=== PATIENT | male | born 1975 | race Caucasian/White ===

== ENCOUNTER 2016-08-30 18:24 | Emergency (ER) | payer MEDICAID | END 2016-08-30 20:18 | disposition left against medical advice (07) | LOC: UCCORT 18:24 | DX: R51 Headache (principal); Z53.9 Procedure and treatment not carried out, unspecified reason ==

== ENCOUNTER 2016-11-20 19:28 | Emergency (ER) | payer MEDICAID ==
[2016-11-20 19:56] VITALS: BP 111/66
--- NOTE | 2016-11-20 20:12 | UC ---
Ear Complaint HPI - HPI Summary HPI Summary: ear pain , cough and sore throat for the past few days, denies fever. - History of Current Complaint Chief Complaint: UCGeneralIllness Stated Complaint: COUGH,SORE THROAT,SINUS Time Seen by Provider: 11/20/16 20:00 Hx Obtained From: Patient Onset/Duration: Sudden Onset, Lasting Days Severity Initially: Moderate Severity Currently: Severe Associated Signs/Symptoms: Positive: Swelling @, URI Symptoms - Allergies/Home Medications Allergies/Adverse Reactions: Allergies Allergy/AdvReac Type Severity Reaction Status Date / Time No Known Allergies Allergy Verified 11/20/16 19:50 PMH/Surg Hx/FS Hx/Imm Hx Previously Healthy: Yes Respiratory History Of: Reports: Asthma - exercise-induced GI/ History Of: Reports: Kidney Stones Psychological History Of: Reports: Anxiety, Depression - Surgical History Surgical History: Yes Surgery Procedure, Year, and Place: HERNIATED DISC REPAIR, TONSILECTOMY - Family History Known Family History: Positive: Hypertension - Social History Alcohol Use: None Alcohol Amount: 250-300mL Substance Use Type: None Substance Use Comment - Amount & Last Used: occasionally Smoking Status (MU): Light Every Day Tobacco Smoker Type: Cigarettes Amount Used/How Often: 6-8 CIGS/DAY Length of Time of Smoking/Using Tobacco: 10 + yrs Household Exposure Type: Cigarettes - Immunization History Most Recent Influenza Vaccination: none Most Recent Tetanus Shot: UTD Most Recent Pneumonia Vaccination: N/A Review of Systems Constitutional: Fatigue Skin: Negative Eyes: Negative ENT: Sore Throat, Ear Ache, Nasal Discharge Respiratory: Shortness Of Breath, Cough Cardiovascular: Negative Gastrointestinal: Negative Genitourinary: Negative Motor: Negative Neurovascular: Negative Musculoskeletal: Negative Neurological: Negative Psychological: Negative All Other Systems Reviewed And Are Negative: Yes Physical Exam Triage Information Reviewed: Yes Appearance: Well-Nourished, Ill-Appearing, Pain Distress Vital Signs: Initial Vital Signs Temp 97.3 F 11/20/16 19:50 Pulse 78 11/20/16 19:50 Resp 18 11/20/16 19:50 BP 111/66 11/20/16 19:50 Pulse Ox 96 11/20/16 19:50 Vital Signs Reviewed: Yes Eye Exam: Normal Eyes: Positive: Conjunctiva Clear ENT Exam: Normal ENT: Positive: Hearing grossly normal, Pharyngeal erythema, Nasal congestion, TMs normal, TM bulging - left ear red purulent fluid behind TM Dental Exam: Normal Neck exam: Normal Neck: Positive: Supple, Nontender, No Lymphadenopathy Respiratory: Positive: Chest non-tender, No respiratory distress, Wheezing, Inspiration, Other: - cough present Cardiovascular Exam: Normal Cardiovascular: Positive: RRR, No Murmur, Pulses Normal Abdominal Exam: Normal Abdomen Description: Positive: Nontender, No Organomegaly, Soft Bowel Sounds: Positive: Present Musculoskeletal Exam: Normal Musculoskeletal: Positive: Strength Intact, ROM Intact, No Edema Neurological Exam: Normal Neurological: Positive: Alert, Muscle Tone Normal Psychological Exam: Normal Skin Exam: Normal Ear Complaint Course/Dx - Course Course Of Treatment: hx obtained, exam performed,meds reviewed, treated for left otitis media, and wheezing - Differential Dx/Diagnosis Differential Diagnosis/HQI/PQRI: Otitis Media, Pharyngitis, Trauma Provider Diagnoses: left otitis media. pharyngitis. wheezing Discharge - Discharge Plan Condition: Stable Disposition: HOME Patient Education Materials: Otitis Media (ED) Additional Instructions: take the medication as prescribed. Increase your fluid intake and get plenty of rest.
== END 2016-11-20 20:27 | disposition home or self-care (01) ==
LOC: UCCORT 19:28
DX: H66.92 Otitis media, unspecified, left ear (principal); J02.9 Acute pharyngitis, unspecified; R06.2 Wheezing; Z87.442 Personal history of urinary calculi; F41.9 Anxiety disorder, unspecified; F32.9 Major depressive disorder, single episode, unspecified; F17.210 Nicotine dependence, cigarettes, uncomplicated
CPT/HCPCS: 99212; G0463

== ENCOUNTER 2017-03-03 12:34 | Emergency (ER) | payer SELFPAY ==
[2017-03-03 13:26] VITALS: BP 123/57
[2017-03-03] MEDS ORDERED: Ibuprofen TAB* 600 MG PO ONE (14:49)
[2017-03-03] MEDS ORDERED: Lidocaine 1%* 5 ML VIAL INJ ONE (14:50)
[2017-03-03] MEDS ORDERED: Tetan/Diph/Pertus SYR(Tdap)* 0.5 ML SYR(BOOSTRIX) use SYR IM ONE (14:50)
[2017-03-03] MEDS ORDERED: Lidocaine 1% MPF* 2 ML VIAL ONE (14:59)
--- NOTE | 2017-03-03 15:20 | UC ---
Sundeep Can Benjamin, scribed for Мария Pedraza MD on 03/03/17 at 1452 . Hand/Wrist HPI - HPI Summary HPI Summary: 41yo male c/o left thumb nailbed pain, swelling, and bruising. Pt had a papercut in between his left thumb nail and the nailbed from a corner of the box top at his work a few days ago ( approx 5) Pt states there was only mild pain immediately after work but his pain has been getting worse with time. Area also started to bruise up and swell. Pain is worsen with touch and movement. Pt is left handed. no immunocompromised. Unknown last tdao Pt smoke cigarettes but denies any other drug use or alcohol use. Reviewed pt s medication and allergy lists. - History Of Current Complaint Chief Complaint: UCWounds Stated Complaint: SOFT TISSUE Time Seen by Provider: 03/03/17 14:40 Hx Obtained From: Patient ?: No Onset/Duration: Sudden Onset, Lasting Days Severity Initially: Mild Severity Currently: Moderate Character Of Pain: Sharp, Throbbing Aggravating Factor(s): Movement Alleviating: Nothing Associated Signs And Symptoms: Positive: Swelling, Bruising - Allergies/Home Medications Allergies/Adverse Reactions: Allergies Allergy/AdvReac Type Severity Reaction Status Date / Time No Known Allergies Allergy Verified 03/03/17 13:26 Home Medications: Home Medications Ibuprofen TAB* [Advil TAB*] 600 mg PO PRN 03/03/17 [History] PMH/Surg Hx/FS Hx/Imm Hx Previously Healthy: Yes GI/ History: Kidney Stones - Surgical History Surgical History: Yes Surgery Procedure, Year, and Place: HERNIATED DISC REPAIR, TONSILECTOMY - Family History Known Family History: Positive: Hypertension - Social History Occupation: Employed Full-time Lives: Alone Alcohol Use: None Alcohol Amount: 250-300mL Substance Use Type: None Substance Use Comment - Amount & Last Used: occasionally Smoking Status (MU): Light Every Day Tobacco Smoker Type: Cigarettes Amount Used/How Often: 6-8 CIGS/DAY Length of Time of Smoking/Using Tobacco: 10 + yrs Household Exposure Type: Cigarettes - Immunization History Most Recent Influenza Vaccination: none Most Recent Tetanus Shot: UTD Most Recent Pneumonia Vaccination: N/A Review of Systems Constitutional: Negative Skin: Bruising - left thumb, Other - erythema, pain, edema Eyes: Negative ENT: Negative Respiratory: Negative Cardiovascular: Negative Gastrointestinal: Negative Genitourinary: Negative Motor: Negative Neurovascular: Negative Musculoskeletal: Edema - left thumb, Other: - left thumb nailbed pain Neurological: Negative Psychological: Negative All Other Systems Reviewed And Are Negative: Yes Physical Exam Triage Information Reviewed: Yes Appearance: Well-Appearing, Pain Distress - with exam Vital Signs: Initial Vital Signs Temp 99.0 F 03/03/17 13:23 Pulse 66 03/03/17 13:23 Resp 18 03/03/17 13:23 BP 123/57 03/03/17 13:23 Pulse Ox 98 03/03/17 13:23 Vital Signs Reviewed: Yes Eye Exam: Normal Eyes: Negative: Discharge ENT Exam: Normal Dental Exam: Normal Neck exam: Normal Neck: Positive: Supple, Nontender, No Lymphadenopathy Respiratory Exam: Normal Respiratory: Positive: Normal breath sounds, No respiratory distress, No accessory muscle use Cardiovascular: Positive: Other: - CBT <2 sec digit Musculoskeletal: Positive: Other: - + thumb up + flex/ext IP, MCP Neurological Exam: Normal Psychological Exam: Normal Skin: Positive: Other - the thumb paronychia medial aspect from mid medial nail extending to proximal bed + erythema, + fluctuance, + visible purluent material No pad involvement, not circumferential Procedures - Procedure Summary Procedure Summary: + consent and time out under sterile condition, infiltrated 0.5ml 1% lidocaine in to area using 11 blade scaple, lifted cuticle 2ml purluent discharge from wound culture obtained copious sterile water irrigation covered with abx oinmtment, bandage and splint - Incision and Drainage Site: left thumb Anesthesia: Lidocaine - 1%, no epi, 0.5ml Instrument(s): Scalpel Packing: Drain Hand/Wrist Course/Dx - Course Course Of Treatment: started with papercut under nail at work - progressed to thumb paronychia. I+D. tdap updated. motrin. culture. augmentin. soaks. wound care. Pt comfortable and in agreement with plan - Differential Dx/Diagnosis Provider Diagnoses: paronychia Discharge - Discharge Plan Condition: Stable Disposition: HOME Prescriptions: Amoxicillin/Clavulanate TAB* [Augmentin TAB 875*] 875 mg PO BID #14 tab Patient Education Materials: Paronychia (ED) Referrals: VICKI Herr [Primary Care Provider] - Additional Instructions: - Soak finger in warm water, 20 minutes at a time, 2-3 times a day - apply a layer of antibiotic ointment and a bandage - Okay to alternate ibuprofen (Advil, motrin) and tylenol every 3hours for pain - Take antibiotics as prescribed until gone - your arm will likely be sore from your tetanus shot. This is normal for 1-2 days - Wear splint for comfort or support - Contact your doctor or return with questions or concerns The documentation as recorded by the Sundeep jesus Benjamin accurately reflects the service I personally performed and the decisions made by , Мария Pedraza MD.
== END 2017-03-03 15:15 | disposition home or self-care (01) ==
LOC: UCEAST 12:34
DX: L03.012 Cellulitis of left finger (principal); F17.210 Nicotine dependence, cigarettes, uncomplicated
CPT/HCPCS: 10140; 87070; 87077; 87186; 87205; 87640; 87641; 90471; 90715; 99212; A9270-GY; G0463

== ENCOUNTER 2017-10-19 11:20 | Emergency (ER) | payer SELFPAY ==
[2017-10-19 12:14] VITALS: BP 107/77
--- NOTE | 2017-10-19 12:23 | UC ---
Lower Extremity/Ankle HPI - HPI Summary HPI Summary: Pt presents with left 4th toe pain. He tells me that in the middle of the night he got up to get a drink of water and stubbed his toe on the table. Woke up this morning with swelling and bruise. Concerned that it is broken. Has not been icing the area and has not taken anything OTC - History of Current Complaint Chief Complaint: UCLowerExtremity Stated Complaint: LEFT TOE INJURY Time Seen by Provider: 10/19/17 12:23 Hx Obtained From: Patient Onset/Duration: Sudden Onset Severity Initially: Severe Severity Currently: Severe Pain Intensity: 8 Pain Scale Used: 0-10 Numeric - Allergies/Home Medications Allergies/Adverse Reactions: Allergies Allergy/AdvReac Type Severity Reaction Status Date / Time No Known Allergies Allergy Verified 10/19/17 12:10 Home Medications: Home Medications NK [No Home Medications Reported] 10/19/17 [History Confirmed 10/19/17] PMH/Surg Hx/FS Hx/Imm Hx Previously Healthy: Yes - Surgical History Surgical History: Yes Surgery Procedure, Year, and Place: HERNIATED DISC REPAIR, TONSILECTOMY - Family History Known Family History: Positive: Hypertension - Social History Lives: With Family Alcohol Use: None Alcohol Amount: 250-300mL Substance Use Type: Marijuana Substance Use Comment - Amount & Last Used: occasionally Smoking Status (MU): Light Every Day Tobacco Smoker Type: Cigarettes Amount Used/How Often: <1/2ppd Length of Time of Smoking/Using Tobacco: 10 + yrs Household Exposure Type: Cigarettes - Immunization History Most Recent Influenza Vaccination: none Most Recent Tetanus Shot: UTD Most Recent Pneumonia Vaccination: N/A Review of Systems Constitutional: Negative Skin: Negative Respiratory: Negative Cardiovascular: Negative Neurovascular: Negative Musculoskeletal: Other: - Left 4th toe pain Neurological: Negative Psychological: Negative All Other Systems Reviewed And Are Negative: Yes Physical Exam - Summary Physical Exam Summary: GENERAL: NAD. WDWN. No pain distress. SKIN: No rashes, sores, ulcers, masses, lesions. NECK: Supple. Nontender. No lymphadenopathy. CHEST: CTAB. No r/r/w. No accessory muscle use. Breathing comfortably and in no distress. CV: RRR. Without m/r/g. Pulses intact PT and DP. Brisk cap refill. MSK: Severe TTP over PIP of 4th toe. Overlying ecchymosis and mild edema. No obvious bony deformities. No MT pain. NEURO: Alert. Sensations intact foot and all toes. PSYCH: Age appropriate behavior. Triage Information Reviewed: Yes Vital Signs: Initial Vital Signs Temp 98.4 F 10/19/17 12:11 Pulse 85 10/19/17 12:11 Resp 16 10/19/17 12:11 BP 107/77 10/19/17 12:11 Pulse Ox 99 10/19/17 12:11 Lower Extremity Course/Dx - Course Course Of Treatment: XR: REPORT AND IMPRESSION: Negative for fracture or malalignment. Distal soft tissue swelling. Suspect toe contusion. Advised to rest and ice the area. Take ibuprofen as needed for pain. - Differential Dx/Diagnosis Provider Diagnoses: 4th Toe contusion Discharge - Sign-Out/Discharge Documenting (check all that apply): Discharge - Discharge Plan Condition: Stable Disposition: HOME Patient Education Materials: Foot Contusion (ED) Referrals: VICKI Herr [Primary Care Provider] - Additional Instructions: If you develop a fever, shortness of breath, chest pain, new or worsening symptoms - please call your PCP or go to the ED. 1) Rest, Ice, and elevate your foot as much as possible over the next 24-48hrs 2) May take ibuprofen 600mg every 6-8 hours as needed for pain - Billing Disposition and Condition Condition: STABLE Disposition: HOME
--- NOTE | 2017-10-19 12:47 | RAD ---
Indication: LEFT fourth toe pain and bruising following stubbing injury. Comparison: No relevant prior exams available on the [facility] for comparison. Technique: 3 views LEFT fourth toe REPORT AND IMPRESSION: Negative for fracture or malalignment. Distal soft tissue swelling.
== END 2017-10-19 13:01 | disposition home or self-care (01) ==
LOC: UCCORT 11:20
DX: S90.122A Contusion of left lesser toe(s) without damage to nail, initial encounter (principal); W22.8XXA Striking against or struck by other objects, initial encounter; Y92.9 Unspecified place or not applicable; F17.210 Nicotine dependence, cigarettes, uncomplicated
CPT/HCPCS: 99211; G0463

== ENCOUNTER 2018-07-15 16:03 | Emergency (ER) | payer OTHER ==
[2018-07-15 16:32] VITALS: BP 123/75
--- NOTE | 2018-07-15 16:49 | UC ---
Throat Pain/Nasal Dylan HPI - HPI Summary HPI Summary: 43-year-old male comes in here today with a chief complaint of sore throat runny nose upper respiratory tract infection symptoms that's been going on for several days. No wheezing some body aches. Swallowing makes the pain worse not swallowing minimize the pain. - History of Current Complaint Chief Complaint: UCGeneralIllness Stated Complaint: ST,CONGESTION Time Seen by Provider: 07/15/18 16:22 Pain Intensity: 0 - Allergies/Home Medications Allergies/Adverse Reactions: Allergies Allergy/AdvReac Type Severity Reaction Status Date / Time No Known Allergies Allergy Verified 07/15/18 16:32 PMH/Surg Hx/FS Hx/Imm Hx Previously Healthy: Yes - Surgical History Surgical History: Yes Surgery Procedure, Year, and Place: HERNIATED DISC REPAIR, TONSILECTOMY - Family History Known Family History: Positive: Hypertension - Social History Alcohol Use: None Alcohol Amount: 250-300mL Substance Use Type: Marijuana Substance Use Comment - Amount & Last Used: occasionally/son in room today Smoking Status (MU): Light Every Day Tobacco Smoker Type: Cigarettes Amount Used/How Often: <1/2ppd Length of Time of Smoking/Using Tobacco: 10 + yrs Household Exposure Type: Cigarettes - Immunization History Most Recent Influenza Vaccination: none Most Recent Tetanus Shot: UTD Most Recent Pneumonia Vaccination: N/A Review of Systems All Other Systems Reviewed And Are Negative: Yes Constitutional: Positive: Negative Skin: Positive: Negative Eyes: Positive: Negative ENT: Positive: Sore Throat, Nasal Discharge, Sinus Congestion Respiratory: Positive: Negative Cardiovascular: Positive: Negative Gastrointestinal: Positive: Negative Motor: Positive: Negative Neurovascular: Positive: Negative Musculoskeletal: Positive: Negative Neurological: Positive: Negative Psychological: Positive: Negative Is Patient Immunocompromised?: No Physical Exam Triage Information Reviewed: Yes Appearance: No Pain Distress, Well-Nourished, Ill-Appearing - MILD Vital Signs: Initial Vital Signs Temp 98.3 F 07/15/18 16:28 Pulse 68 07/15/18 16:28 Resp 16 07/15/18 16:28 BP 123/75 07/15/18 16:28 Pulse Ox 99 07/15/18 16:28 Eye Exam: Normal Eyes: Positive: Conjunctiva Clear ENT: Positive: Pharyngeal erythema, Nasal congestion, Nasal drainage Neck exam: Normal Neck: Positive: Supple Respiratory: Positive: Lungs clear, Normal breath sounds, No respiratory distress Cardiovascular: Positive: RRR Musculoskeletal Exam: Normal Musculoskeletal: Positive: Strength Intact, ROM Intact Neurological Exam: Normal Neurological: Positive: Alert, Muscle Tone Normal Psychological Exam: Normal Psychological: Positive: Age Appropriate Behavior Skin Exam: Normal Throat Pain/Nasal Course/Dx - Course Course Of Treatment: Strep was negative. This was discussed with the patient. Also viral versus bacterial infections and these of antibiotics was discussed. At this time there preference is to have the antibiotic to be taken if symptoms continue. - Differential Dx/Diagnosis Provider Diagnosis: Pharyngitis Discharge - Sign-Out/Discharge Documenting (check all that apply): Patient Departure All imaging exams completed and their final reports reviewed: No Studies - Discharge Plan Condition: Stable Disposition: HOME Prescriptions: Amoxicillin PO (*) [Amoxicillin 875 MG (*)] 875 mg PO BID #20 tab Patient Education Materials: Pharyngitis (ED) Forms: *Work Release Referrals: [facility] [Outside] Additional Instructions: FOLLOW UP WITH YOUR DOCTOR IF NOT COMPLETELY IMPROVED. GET RECHECKED FOR ANY WORSENING OF YOUR CONDITION OR QUESTIONS OR CONCERNS. - Billing Disposition and Condition Condition: STABLE Disposition: Home
== END 2018-07-15 17:14 | disposition home or self-care (01) ==
LOC: UCCORT 16:03
DX: J02.9 Acute pharyngitis, unspecified (principal); F17.210 Nicotine dependence, cigarettes, uncomplicated
CPT/HCPCS: 87651; 99212; G0463

== ENCOUNTER 2018-08-14 10:45 | Emergency (ER) | payer OTHER ==
[2018-08-14 11:07] VITALS: BP 129/70
--- NOTE | 2018-08-14 11:33 | UC ---
Throat Pain/Nasal Dylan HPI - HPI Summary HPI Summary: Pt c/o sudden onset ST, that began last night. Pt states that his son was diagnosed with strep " a few days ago" and had left over amoxicillin and took a tab last night and then this morning. Pt denies improvement in ST. - History of Current Complaint Chief Complaint: UCGeneralIllness Stated Complaint: SORE THROAT Time Seen by Provider: 08/14/18 11:14 Hx Obtained From: Patient Onset/Duration: Sudden Onset, Lasting Days, Still Present Severity: Mild Pain Intensity: 4 Associated Signs & Symptoms: Positive: Dysphagia Related History: Smoking - Epiglottits Risk Factors Epiglottis Risk Factors: Sudden Onset - Allergies/Home Medications Allergies/Adverse Reactions: Allergies Allergy/AdvReac Type Severity Reaction Status Date / Time No Known Allergies Allergy Verified 08/14/18 11:07 PMH/Surg Hx/FS Hx/Imm Hx Previously Healthy: Yes - Surgical History Surgical History: Yes Surgery Procedure, Year, and Place: HERNIATED DISC REPAIR, TONSILECTOMY - Family History Known Family History: Positive: Hypertension - Social History Occupation: Employed Full-time Lives: With Family Alcohol Use: None Alcohol Amount: 250-300mL Substance Use Type: Marijuana Substance Use Comment - Amount & Last Used: occasionally/son in room today Smoking Status (MU): Light Every Day Tobacco Smoker Type: Cigarettes Amount Used/How Often: <1/2ppd Length of Time of Smoking/Using Tobacco: 10 + yrs Have You Smoked in the Last Year: Yes Household Exposure Type: Cigarettes - Immunization History Most Recent Influenza Vaccination: none Most Recent Tetanus Shot: UTD Most Recent Pneumonia Vaccination: N/A Review of Systems All Other Systems Reviewed And Are Negative: Yes Constitutional: Positive: Fatigue Skin: Positive: Negative Eyes: Positive: Negative ENT: Positive: Sore Throat Respiratory: Positive: Negative Cardiovascular: Positive: Negative Gastrointestinal: Positive: Negative Genitourinary: Positive: Negative Motor: Positive: Negative Neurovascular: Positive: Negative Musculoskeletal: Positive: Negative Neurological: Positive: Negative Psychological: Positive: Negative Is Patient Immunocompromised?: No Physical Exam Triage Information Reviewed: Yes Appearance: Well-Appearing Vital Signs: Initial Vital Signs Temp 98.3 F 08/14/18 11:04 Pulse 79 08/14/18 11:04 Resp 18 08/14/18 11:04 BP 129/70 08/14/18 11:04 Pulse Ox 99 08/14/18 11:04 Vital Signs Reviewed: Yes Eye Exam: Normal ENT Exam: Other ENT: Positive: Tonsillar swelling Dental Exam: Normal Neck exam: Normal Respiratory Exam: Normal Cardiovascular Exam: Normal Musculoskeletal Exam: Normal Neurological Exam: Normal Psychological Exam: Normal Skin Exam: Normal Diagnostics - Laboratory Diagnostic Studies Completed/Ordered: throat culture sent Throat Pain/Nasal Course/Dx - Differential Dx/Diagnosis Differential Diagnosis/HQI/PQRI: Influenza, Pharyngitis, Tonsillitis, URI Provider Diagnosis: Sore throat Discharge - Sign-Out/Discharge Documenting (check all that apply): Patient Departure All imaging exams completed and their final reports reviewed: No Studies - Discharge Plan Condition: Stable Disposition: HOME Prescriptions: predniSONE TAB* [Deltasone 20 MG TAB*] 20 mg PO DAILY #4 tab Patient Education Materials: Pharyngitis (ED) Forms: *Work Release Referrals: [facility] [Outside] No Primary Care Phys,NOPCP [Primary Care Provider] - - Billing Disposition and Condition Condition: STABLE Disposition: Home - Attestation Statements Provider Attestation: I was available for consult. This patient was seen by the KEIRA. The patient was not presented to, seen by, or examined by me. -Oscar
== END 2018-08-14 11:40 | disposition home or self-care (01) ==
LOC: UCCORT 10:45
DX: J02.9 Acute pharyngitis, unspecified (principal); F17.210 Nicotine dependence, cigarettes, uncomplicated
CPT/HCPCS: 87070; 99212; G0463

== ENCOUNTER 2018-08-28 08:45 | Emergency (ER) | payer OTHER | END 2018-08-28 08:58 | disposition left against medical advice (07) | LOC: UCCORT 08:45 | DX: Z53.21 Procedure and treatment not carried out due to patient leaving prior to being seen by health care provider (principal) ==

== ENCOUNTER 2019-02-09 07:18 | Emergency (ER) | payer OTHER ==
[2019-02-09] MEDS ORDERED: Al Hydrox/Mg Hydrox/Simet LIQ* 30 ML UDC PO ONE (07:55)
[2019-02-09] MEDS ORDERED: Lidocaine 2% VISCOUS* 15 ML UDC PO ONE (07:55)
--- NOTE | 2019-02-09 08:03 | UC ---
Abdominal Pain Male HPI - HPI Summary HPI Summary: SEVERAL DAYS OF EPIGASTRIC/LEFT UPPER QUADRANT SHARP ABDOMINAL PAIN. FEELS SOME ACID IN HIS THROAT. APPETITE HAS BEEN DECREASED. MILD NAUSEA BUT NO VOMITING. NO DIARRHEA. NO FEVER. REPORTS ABOUT 20 LB UNINTENTIONAL WEIGHT LOSS OVER THE PAST 6 MONTHS BUT THINKS THIS IS DUE TO STRESS AND ANXIETY. - History of Current Complaint Chief Complaint: UCAbdominalPain Stated Complaint: STOMACH PAIN Time Seen by Provider: 02/09/19 07:33 Hx Obtained From: Patient Onset/Duration: Gradual Onset, Lasting Days, Still Present Timing: Constant Severity Initially: Moderate Severity Currently: Moderate Pain Intensity: 8 Pain Scale Used: 0-10 Numeric Location: Discrete At: LUQ, Epigastric Radiates: No Character: Sharp Aggravating Factor(s): Nothing Alleviating Factor(s): Nothing Associated Signs And Symptoms: Negative: Fever, Chest Pain, Back Pain - Allergies/Home Medications Allergies/Adverse Reactions: Allergies Allergy/AdvReac Type Severity Reaction Status Date / Time No Known Allergies Allergy Verified 02/09/19 07:35 Home Medications: Home Medications Aspirin/Acetaminophen/Caffeine [Excedrin Migraine Caplet] 1 tab PO DAILY [History Confirmed 02/09/19] PMH/Surg Hx/FS Hx/Imm Hx Respiratory History: Asthma GI/ History: Kidney Stones Neurological History: Migraine Psychological History: Anxiety, Depression - Surgical History Surgical History: Yes Surgery Procedure, Year, and Place: HERNIATED DISC REPAIR, TONSILECTOMY. lithotripsy. left eye surgery as an - Family History Known Family History: Positive: Hypertension - Social History Alcohol Use: None Alcohol Amount: 250-300mL Substance Use Type: Marijuana Substance Use Comment - Amount & Last Used: occasionally Smoking Status (MU): Light Every Day Tobacco Smoker Type: Cigarettes Amount Used/How Often: <1/2ppd Length of Time of Smoking/Using Tobacco: 10 + yrs Have You Smoked in the Last Year: Yes Household Exposure Type: Cigarettes - Immunization History Most Recent Influenza Vaccination: none Most Recent Tetanus Shot: UTD Most Recent Pneumonia Vaccination: N/A Review of Systems All Other Systems Reviewed And Are Negative: Yes Constitutional: Positive: Negative Respiratory: Positive: Negative Cardiovascular: Positive: Negative Gastrointestinal: Positive: Abdominal Pain, Nausea. Negative: Vomiting, Diarrhea Genitourinary: Positive: Negative Physical Exam Triage Information Reviewed: Yes Appearance: Well-Appearing, No Pain Distress, Well-Nourished Vital Signs: Initial Vital Signs Temp 97.8 F 02/09/19 07:25 Pulse 78 02/09/19 07:25 Resp 18 02/09/19 07:25 BP 107/69 02/09/19 07:25 Pulse Ox 98 02/09/19 07:25 Vital Signs Reviewed: Yes Eyes: Positive: Conjunctiva Clear ENT: Positive: Hearing grossly normal Neck: Positive: Supple Respiratory Exam: Normal Cardiovascular Exam: Normal Abdomen Description: Positive: Soft, Other: - LUQ TENDERNESS. NO REBOUND OR RIGIDITY. Negative: CVA Tenderness (R), CVA Tenderness (L), Distended, Guarding Bowel Sounds: Positive: Present Musculoskeletal: Positive: No Edema Neurological: Positive: Alert Psychological: Positive: Age Appropriate Behavior Skin: Negative: Rashes Re-Evaluation - Re-Evaluation First Eval Re-Evaluation Time: 09:15 - SLIGHTLY BETTER AFTER GI COCKTAIL Change: Improved Abd Pain Male Course/Dx - Course Course Of Treatment: FELT SLIGHTLY BETTER AFTER GI COCKTAIL. PATIENT TAKES A LOT OF EXCEDRIN MIGRAINE AND ADMITS HAS NOT BEEN EATING WELL RECENTLY. SYMPTOMS CONSISTENT WITH GASTRITIS. WILL TRY PPI AND HAVE PATIENT FOLLOW-UP WITH GI. DISCUSSED MY CONCERN FOR HIS RECENT WEIGHT LOSS. PATIENT THINKS THIS IS RELATED TO STRESS AFFECTING HIS APPETITE. OFFERED CT SCAN TODAY TO EVALUATE FOR ANY INTRA- ABDOMINAL CONDITIONS. PATIENT DECLINES AND STATES HE WOULD PREFER TO FOLLOW-UP AN OUTPATIENT. CBC, CMP AND TSH DRAWN. TO THE ER WITHOUT FAIL IF SYMPTOMS WORSEN. - Differential Dx/Clinical Impression Provider Diagnosis: Gastritis Discharge - Sign-Out/Discharge Documenting (check all that apply): Patient Departure All imaging exams completed and their final reports reviewed: No Studies - Discharge Plan Condition: Stable Disposition: HOME Prescriptions: Omeprazole 40 mg PO DAILY #30 capsule. Patient Education Materials: Gastritis (ED) Referrals: No Primary Care Phys,NOPCP [Primary Care Provider] - Additional Instructions: TAKE THE REFLUX MEDICINE IN THE MORNING (IDEALLY AT LEAST 30 MINUTES BEFORE YOU EAT). EAT SLOWLY. STAY UPRIGHT AT LEAST 30 MINUTES AFTER EATING. EAT SMALLER, MORE FREQUENT MEALS OPPOSED TO LARGE INFREQUENT MEALS. AVOID POSSIBLE TRIGGER FOODS - GREASY, SPICY, ACIDIC FOODS. CAFFEINE, ALCOHOL. FOLLOW-UP WITH GI. TRY TO DECREASE YOUR EXCEDRIN USE AND AVOID NSAIDS SUCH IBUPROFEN AND NAPROXEN. [facility] Address: [address], [place] [address] GO TO THE ER WITHOUT FAIL IF YOU DEVELOP WORSENING PAIN, FEVER, VOMITING, BLOODY /BLACK STOOLS OR ANY OTHER CONCERNING SYMPTOMS. - Billing Disposition and Condition Condition: STABLE Disposition: Home
[2019-02-09 09:39] VITALS: BP 114/73
[2019-02-09 11:23] LABS: ABS Basophils 0.1 10^3/ul (0-0.2); ABS Eosinophils 0.6 10^3/ul (0-0.6); ABS Lymphocytes 2.1 10^3/ul (1.0-4.8); ABS Monocytes 0.8 10^3/ul (0-0.8); ABS Neutrophils 6.3 10^3/ul (1.5-7.7); Hematocrit 47 % (42-52); Hemoglobin 15.8 g/dL (14.0-18.0); Lymphocyte % 21.3 %; Mean Corpuscular HGB Conc 33 g/dL (31-36); Mean Corpuscular Hemoglobin 31 pg (27-31); Mean Corpuscular Volume 92 fL (80-94); Mean Platelet Volume 7.4 fL (7.4-10.4); Platelet Count 306 10^3/uL (150-450); Red Blood Count 5.13 10^6 /uL (4.18-5.48); Red Cell Distribution Width 14 % (10-15); White Blood Count 9.9 10^3/uL (3.5-10.8)
[2019-02-09 11:51] LABS: TSH (Thyroid Stimulating Horm) 1.39 mcIU/mL (0.34-5.60)
[2019-02-09 13:01] LABS: Albumin 4.4 g/dL (3.2-5.2); Calcium 9.3 mg/dL (8.6-10.3); Potassium 4.7 mmol/L (3.5-5.0); Total Bilirubin 0.2 mg/dL (0.2-1.0)
[2019-02-09 13:07] LABS: Albumin/Globulin Ratio 2.2 (1-3); BUN/Creatinine Ratio 14.9 (8-20); EGFR Non-African American 88.4 (>60); Total Protein 6.4 g/dL (6.4-8.9)
== END 2019-02-09 09:39 | disposition home or self-care (01) ==
LOC: UCEAST 07:18
DX: K29.70 Gastritis, unspecified, without bleeding (principal); J45.909 Unspecified asthma, uncomplicated; F41.9 Anxiety disorder, unspecified; F32.9 Major depressive disorder, single episode, unspecified; Z79.82 Long term (current) use of aspirin
CPT/HCPCS: 36415; 80053; 84443; 85025; 99212; A9270-GY; G0463

== ENCOUNTER 2019-02-17 13:23 | Emergency (ER) | payer OTHER ==
[2019-02-17 14:34] VITALS: BP 115/75
--- NOTE | 2019-02-17 15:48 | UC ---
Cardiac HPI - HPI Summary HPI Summary: 43-year-old male presents with one-week history of right chest wall pain. States the pain started on 02/12/2019 after he had been outdoors using pruning verónica to cut down some small trees. States with a couple of the larger trees he had placed the handles of the verónica against his chest to get some extra leverage. States the pain worsens with deep breath. He has not tried any over- the-counter analgesics. States he came for evaluation because he has not been able to perform all of his duties at work due to the pain. Denies fever, chills , rash, palpitations, diaphoresis, shortness of breath, cough, abdominal pain, nausea, or vomiting. - History of Current Complaint Chief Complaint: UCGeneralIllness Stated Complaint: TRUNCAL TRAUMA Time Seen by Provider: 02/17/19 15:11 Hx Obtained From: Patient Pain Intensity: 8 - Allergy/Home Medications Allergies/Adverse Reactions: Allergies Allergy/AdvReac Type Severity Reaction Status Date / Time No Known Allergies Allergy Verified 02/17/19 14:26 Home Medications: Home Medications Ibuprofen TAB* [Motrin TAB* 400 MG] 400 mg PO Q6H PRN 02/17/19 [History Confirmed 02/17/19] PMH/Surg Hx/FS Hx/Imm Hx Previously Healthy: Yes - Denies significant PMH - Surgical History Surgical History: Yes Surgery Procedure, Year, and Place: HERNIATED DISC REPAIR, TONSILECTOMY. lithotripsy. left eye surgery as an - Family History Known Family History: Positive: Hypertension Negative: Cardiac Disease - Social History Occupation: Employed Full-time Lives: Alone Alcohol Use: None Alcohol Amount: 250-300mL Substance Use Type: Marijuana Substance Use Comment - Amount & Last Used: occasionally Smoking Status (MU): Light Every Day Tobacco Smoker Type: Cigarettes Amount Used/How Often: 1/2 PPD Length of Time of Smoking/Using Tobacco: 10 + yrs Have You Smoked in the Last Year: Yes Household Exposure Type: Cigarettes - Immunization History Most Recent Influenza Vaccination: none Most Recent Tetanus Shot: UTD Most Recent Pneumonia Vaccination: N/A Review of Systems All Other Systems Reviewed And Are Negative: Yes Constitutional: Negative: Fever, Chills Skin: Negative: Rash, Bruising Respiratory: Negative: Shortness Of Breath, Cough Cardiovascular: Positive: Chest Pain - See HPI. Negative: Palpitations Gastrointestinal: Negative: Abdominal Pain, Vomiting, Nausea Genitourinary: Positive: Negative Musculoskeletal: Positive: Negative Neurological: Positive: Negative Is Patient Immunocompromised?: No Physical Exam - Summary Physical Exam Summary: GENERAL APPEARANCE: Well developed, well nourished, alert and cooperative, and appears to be in no acute distress. CARDIAC: Normal S1 and S2. No S3, S4 or murmurs. Rhythm is regular. There is no peripheral edema, cyanosis or pallor. Extremities are warm and well perfused. Capillary refill is less than 2 seconds. Peripheral pulses intact. LUNGS: Anterior right upper chest wall tenderness with palpation. No crepitus, ecchymosis, rash, or lesions. Lungs clear to auscultation without rales, rhonchi , wheezing or diminished breath sounds. ABDOMEN: Positive bowel sounds. Soft, nondistended, nontender. No guarding or rebound. No masses or hepatosplenomegally. MUSKULOSKELETAL: ROM intact to all extremities. No joint erythema or tenderness. Normal muscular development. Normal gait. SKIN: Skin normal color, texture and turgor with no lesions or eruptions. Triage Information Reviewed: Yes Vital Signs: Initial Vital Signs Temp 98.1 F 02/17/19 14:27 Pulse 69 02/17/19 14:27 Resp 16 02/17/19 14:27 BP 115/75 02/17/19 14:27 Pulse Ox 98 02/17/19 14:27 Vital Signs Reviewed: Yes - Assessment/Plan Course Of Treatment: 43-year-old male presents with one-week history of right chest wall pain. States the pain started on 02/12/2019 after he had been outdoors using pruning verónica to cut down some small trees. States with a couple of the larger trees he had placed the handles of the verónica against his chest to get some extra leverage. States the pain worsens with deep breath. He has not tried any over- the-counter analgesics. States he came for evaluation because he has not been able to perform all of his duties at work due to the pain. Denies fever, chills , rash, palpitations, diaphoresis, shortness of breath, cough, abdominal pain, nausea, or vomiting. Afebrile. Vital signs stable. Patient had reproducible right anterior chest wall pain with palpation and otherwise unremarkable exam. Discussed with the patient that his symptoms were likely musculoskeletal in nature. He was given naproxen 500 mg PO in the clinic for pain. Recommending conservative treatment for a musculoskeletal chest wall pain including NSAIDs as well as cold/heat therapy. He is to return here or follow-up with his primary care provider in 3-5 days if symptoms are not improving. Anticipatory guidance and warning symptoms are reviewed with the patient. Verbalizes understanding and agrees with plan of care. - Differential Diagnoses - Chest Pain Differential Diagnosis/HQI/PQRI: Acute TN, Chest Wall, Lower Respiratory Infection - Clinical Impression Provider Diagnosis: Acute chest wall pain Discharge - Sign-Out/Discharge Documenting (check all that apply): Patient Departure All imaging exams completed and their final reports reviewed: No Studies - Discharge Plan Condition: Stable Disposition: HOME Prescriptions: Naproxen [Naproxen 500 mg tab] 500 mg PO BID #30 tablet Patient Education Materials: Chest Wall Pain (ED) Forms: *Work Release Referrals: No Primary Care Phys,NOPCP [Primary Care Provider] - Additional Instructions: Based on her history and physical your chest pain is very likely to be musculoskeletal in nature. Take naproxen 500 mg 1 tab twice a day with food for the next 5 days and you may take twice a day as needed. Try applying ice or heat or alternating ice and heat for 15-20 minutes at least 4 times a day to the affected area to help with the pain. Get plenty of rest. Avoid heavy lifting or activities that cause pain. Return here or follow-up with a primary care provider in 3-5 days if symptoms are not improving. Seek immediate medical attention in the emergency room if you develop fever greater than 100.5 F, have worsening chest pain, become weak or dizzy, break out in a cold sweat, develop shortness of breath, nausea or vomiting, or any worsening of symptoms. - Billing Disposition and Condition Condition: STABLE Disposition: Home
[2019-02-17] MEDS ORDERED: Naproxen TAB* 250 MG PO ONE (15:50)
== END 2019-02-17 15:58 | disposition home or self-care (01) ==
LOC: UCEAST 13:23
DX: R07.89 Other chest pain (principal); F17.210 Nicotine dependence, cigarettes, uncomplicated
CPT/HCPCS: 99212; A9270-GY; G0463

== ENCOUNTER 2019-04-13 11:30 | Emergency (ER) | payer OTHER ==
[2019-04-13 11:38] VITALS: BP 116/66
--- NOTE | 2019-04-13 11:42 | UC ---
Respiratory Complaint HPI - HPI Summary HPI Summary: 43 yo male presents with cold symptoms. He tells me that 2 days ago he developed sinus congestion, post nasal drip, and dry cough. Symptoms have been persisting since that time. He has not been taking anything OTC for his symptoms. He is smoking daily. Denies fever, chills, sore throat, SOB, chest pain, n/v. - History of Current Complaint Chief Complaint: UCRespiratory Stated Complaint: CHEST CONGESTION Time Seen by Provider: 04/13/19 11:42 Hx Obtained From: Patient Onset/Duration: Gradual Onset Severity Initially: Mild Severity Currently: Moderate Pain Intensity: 5 Pain Scale Used: 0-10 Numeric Character: Cough: Nonproductive - Allergies/Home Medications Allergies/Adverse Reactions: Allergies Allergy/AdvReac Type Severity Reaction Status Date / Time No Known Allergies Allergy Verified 04/13/19 11:38 PMH/Surg Hx/FS Hx/Imm Hx - Additional Past Medical History Additional PMH: None - Surgical History Surgical History: Yes Surgery Procedure, Year, and Place: HERNIATED DISC REPAIR, TONSILECTOMY. lithotripsy. left eye surgery as an - Family History Known Family History: Positive: Hypertension Negative: Cardiac Disease - Social History Occupation: Employed Full-time Lives: With Family Alcohol Use: None Alcohol Amount: 250-300mL Substance Use Type: Marijuana Substance Use Comment - Amount & Last Used: occasionally Smoking Status (MU): Light Every Day Tobacco Smoker Type: Cigarettes Amount Used/How Often: 1/2 PPD Length of Time of Smoking/Using Tobacco: 10 + yrs Have You Smoked in the Last Year: Yes Household Exposure Type: Cigarettes - Immunization History Most Recent Influenza Vaccination: none Most Recent Tetanus Shot: UTD Most Recent Pneumonia Vaccination: N/A Review of Systems All Other Systems Reviewed And Are Negative: No Constitutional: Positive: Negative Skin: Positive: Negative Eyes: Positive: Negative ENT: Positive: Nasal Discharge, Sinus Congestion Respiratory: Positive: Cough Cardiovascular: Positive: Negative Gastrointestinal: Positive: Negative Neurological: Positive: Negative Psychological: Positive: Negative Physical Exam - Summary Physical Exam Summary: GENERAL: NAD. WDWN. No pain distress. SKIN: No rashes, sores, lesions, or open wounds. HEENT: Head: AT/NC Eyes: EOM intact. Conjunctiva clear without inflammation or discharge. Ears: Hearing grossly normal. TMs intact, no bulging, erythema, or edema. Nose: Nasal mucosa pink and moist. NTTP maxillary and frontal sinus. Throat: Posterior oropharynx without exudates, erythema, or tonsillar enlargement. Uvula midline. NECK: Supple. Nontender. No lymphadenopathy. CHEST: CTAB. No r/r/w. No accessory muscle use. Breathing comfortably and in no distress. CV: RRR. Without m/r/g. Pulses intact. Cap refill <2seconds NEURO: Alert. PSYCH: Age appropriate behavior. Triage Information Reviewed: Yes Vital Signs: Initial Vital Signs Temp 97.8 F 04/13/19 11:35 Pulse 71 04/13/19 11:35 Resp 18 04/13/19 11:35 BP 116/66 04/13/19 11:35 Pulse Ox 100 04/13/19 11:35 Vital Signs Reviewed: Yes Respiratory Course/Dx - Course Course Of Treatment: Suspect viral illness/bronchitis. Advised to cut back on smoking. Will treat with mucinex, steroids, and albuterol inhaler. - Differential Dx/Diagnosis Provider Diagnosis: Bronchitis Discharge ED - Sign-Out/Discharge Documenting (check all that apply): Patient Departure All imaging exams completed and their final reports reviewed: No Studies - Discharge Plan Condition: Stable Disposition: HOME Prescriptions: Albuterol HFA INHALER* [Ventolin HFA Inhaler*] 1 puff INH Q6H PRN #1 mdi PRN Reason: Cough guaiFENesin ER TAB [Mucinex*] 600 mg PO BID #14 tab.er predniSONE TAB* [Deltasone 20 MG TAB*] 40 mg PO DAILY #10 tab Patient Education Materials: Acute Cough (ED) Forms: *Work Release Referrals: No Primary Care Phys,NOPCP [Primary Care Provider] - Additional Instructions: If you develop a fever, shortness of breath, chest pain, new or worsening symptoms - please call your PCP or go to the ED immediately. - Billing Disposition and Condition Condition: STABLE Disposition: Home
== END 2019-04-13 11:55 | disposition home or self-care (01) ==
LOC: UCEAST 11:30
DX: J40 Bronchitis, not specified as acute or chronic (principal); F17.210 Nicotine dependence, cigarettes, uncomplicated
CPT/HCPCS: 99212; G0463

== ENCOUNTER 2019-07-12 14:28 | Emergency (ER) | payer OTHER ==
[2019-07-12 14:40] VITALS: BP 122/76
--- NOTE | 2019-07-12 15:02 | UC ---
Back Pain HPI - HPI Summary HPI Summary: The patient is a 44-year-old male with a 4-5 day history of right-sided low back pain with intermittent pain and tingling radiating down the back of his right leg almost to his foot. He denies any bowel or bladder dysfunction. He has a remote history of spinal surgery. He can't remember the date of the surgery or the hospital where he had this surgery. He states the surgery was due to 2 herniated disks in his lumbar spine. He remembers that he did have right-sided sciatica with those tests. He denies any history of cancer. He denies any recent trauma. He has been taking ibuprofen. 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 - History of Current Complaint Chief Complaint: UCBackPain Stated Complaint: BACKPAIN Time Seen by Provider: 07/12/19 14:47 Hx Obtained From: Patient Onset/Duration: Gradual Onset, Lasting Days - 4-5 Timing: Constant Severity Initially: Mild Severity Currently: Moderate Pain Intensity: 8 Pain Scale Used: 0-10 Numeric Back Pain: Is Discrete @ - right lower back, Radiates To - down post right leg almost to foot Character: Sharp, Dull, Spasmodic Aggravating Factor(s): Movement, Lifting, Bending Alleviating Factor(s): Rest Associated Signs And Symptoms: Positive: Tingling - at times right leg. Negative: Swelling, Redness, Bruising, Fever, Weakness, Abdominal Pain, Flank Pain, Bladder Incontinence, Bowel Incontinence, Weight Loss, Pain with Weight Bearing Related History: Similar Episode Dx As, Previous Back Injury Full Body (No Head): 1 - pain here 2 - radiates here - Allergies/Home Medications Allergies/Adverse Reactions: Allergies Allergy/AdvReac Type Severity Reaction Status Date / Time No Known Allergies Allergy Verified 07/12/19 14:40 Home Medications: Home Medications Ibuprofen TAB* [Advil TAB*] 600 mg PO Q6H PRN 07/12/19 [History Confirmed ] PMH/Surg Hx/FS Hx/Imm Hx Previously Healthy: Yes - Surgical History Surgical History: Yes Surgery Procedure, Year, and Place: HERNIATED DISC REPAIR, TONSILECTOMY. lithotripsy. left eye surgery as an - Family History Known Family History: Positive: Hypertension Negative: Cardiac Disease - Social History Alcohol Use: None Alcohol Amount: 250-300mL Substance Use Type: Marijuana Substance Use Comment - Amount & Last Used: occasionally Smoking Status (MU): Light Every Day Tobacco Smoker Type: Cigarettes Amount Used/How Often: 1/2 PPD Length of Time of Smoking/Using Tobacco: 10 + yrs Have You Smoked in the Last Year: Yes Household Exposure Type: Cigarettes - Immunization History Most Recent Influenza Vaccination: none Most Recent Tetanus Shot: UTD Most Recent Pneumonia Vaccination: N/A Review of Systems All Other Systems Reviewed And Are Negative: Yes Constitutional: Positive: Negative Skin: Positive: Negative Eyes: Positive: Negative ENT: Positive: Negative Respiratory: Positive: Negative Cardiovascular: Positive: Negative Gastrointestinal: Positive: Negative Genitourinary: Positive: Negative Motor: Positive: Negative Neurovascular: Positive: Negative Musculoskeletal: Positive: Other: - right low back pain radiating almost to right foot Neurological: Positive: Negative Psychological: Positive: Negative Physical Exam Triage Information Reviewed: Yes Appearance: Well-Appearing, Well-Nourished, Pain Distress Vital Signs: Initial Vital Signs Temp 98.6 F 07/12/19 14:36 Pulse 98 07/12/19 14:36 Resp 16 07/12/19 14:36 BP 122/76 07/12/19 14:36 Pulse Ox 97 07/12/19 14:36 Vital Signs Reviewed: Yes Eyes: Positive: Conjunctiva Clear ENT: Positive: Hearing grossly normal. Negative: Nasal congestion, Nasal drainage, Trismus, Muffled voice, Hoarse voice Dental: Negative: Abscess @ Neck: Positive: Supple Respiratory: Positive: Lungs clear, Normal breath sounds, No respiratory distress, No accessory muscle use Cardiovascular: Positive: RRR, No Murmur Musculoskeletal: Positive: ROM Intact, No Edema Neurological: Positive: Alert Psychological Exam: Normal Skin Exam: Normal - Additional Comments NO MID LINE [place] TENDERNESS OF SPINE + right paraspinous muscle tenderness -SLR neuro- equal knee jerk and ankle reflexes no decreased sensation slow wide based gait Back Pain Course/Dx - Differential Dx/Diagnosis Provider Diagnosis: Lumbar strain, Right sided sciatica Discharge ED - Sign-Out/Discharge Documenting (check all that apply): Patient Departure All imaging exams completed and their final reports reviewed: No Studies - Discharge Plan Condition: Stable Disposition: HOME Prescriptions: Cyclobenzaprine (NF) [Cyclobenzaprine 5 MG (NF)] 5 mg PO TID PRN #21 tab PRN Reason: Spasms - Back methylPREDNISolone [Medrol Dosepak 4 MG*] 0 mg PO .SEE RUBEN INSTRUCTION #1 tab Patient Education Materials: Sciatica (ED) Forms: *Work Release Referrals: [facility] [Outside] - As Soon As Possible (call here to help find a primary care provider) [facility] [Outside] - As Soon As Possible (for follow up of back if not improving) Additional Instructions: activity as tolerated to ER for new or worsening symptoms You need to find a primary If symptoms persist or worsen you may need a MRI of your back - Billing Disposition and Condition Condition: STABLE Disposition: Home
== END 2019-07-12 15:16 | disposition home or self-care (01) ==
LOC: UCEAST 14:28
DX: S39.012A Strain of muscle, fascia and tendon of lower back, initial encounter (principal); M54.31 Sciatica, right side; F17.210 Nicotine dependence, cigarettes, uncomplicated; X58.XXXA Exposure to other specified factors, initial encounter; Y92.9 Unspecified place or not applicable
CPT/HCPCS: 99212; G0463